=== PATIENT | male | born 1975 | race Caucasian/White ===

== ENCOUNTER 2020-11-22 12:45 | Outpatient (CLI) | payer OTHER, SELFPAY ==
--- NOTE | 2020-11-28 13:24 | WPDPFTINT ---
PFT Interpretation This PFT met all criteria for ATS standards and reproducibility FEV/FVC post bronchodilator 73% FEV1 59% FVC 64% FEV1 improved by 15% and 310 mL post bronchodilator. TLC 125% RV 297% RV/TLC 68% DLCO 90% when adjusted for alveolar volume but not adjusted for hemoglobin Flow volume loops showed Significant expiratory coving Impression: Moderate airflow obstruction with good response to bronchodilators and hyperinflation and air trapping. This pattern is suggestive of asthma or reactive airway disease. Clinical correlation is advised. PFT Procedure Performed PFT Procedure Performed Spirometry with Pre/Post Bronchodilator Plethysmography (Lung Vol) Diffusing Cap (DLCO) Flow Vol Loop
== END 2020-11-22 12:46 | disposition home or self-care (01) ==
PROVIDERS: PCP Family Medicine; Visit Provider Family Medicine
DX: R06.2 Wheezing (principal); I10 Essential (primary) hypertension
CPT/HCPCS: 94060; 94726; 94729

== ENCOUNTER 2022-06-09 10:07 | Outpatient (CLI) | payer BC, SELFPAY ==
[2022-06-09 12:43] LABS: Kit Draw Collected
== END 2022-06-09 10:08 | disposition home or self-care (01) ==
LOC: ANHGOSHLAB 10:09
PROVIDERS: PCP Family Medicine; Visit Provider Nurse Practitioner
DX: I10 Essential (primary) hypertension (principal); Z53.8 Procedure and treatment not carried out for other reasons
CPT/HCPCS: 99199; 36415

== ENCOUNTER 2024-01-25 08:17 | Outpatient (CLI) | payer BC, SELFPAY ==
[2024-01-25 18:57] LABS: Basophils Absolute Auto 0.1 K/mm3 (0.0-0.1); Eosinophils Absolute Auto 0.2 K/mm3 (0-0.3); Eosinophils Percent Auto 3.9 % (0-4.4); Hematocrit 45.9 % (42.0-52.0); Hemoglobin 15.1 g/dL (14.0-18.0); Immature Granulocyte Absolute 0.05 K/mm3 (0.00-0.031); Immature Granulocyte Percent A 0.8 % (0-0.5); Lymphocytes Absolute Auto 1.52 K/mm3 (0.9-3.2); Lymphocytes Percent Auto 24.4 % (18.3-44.2); Mean Corpuscular HGB Conc 32.9 g/dl (32-36); Mean Corpuscular Hemoglobin 31.5 pg (26-34); Mean Corpuscular Volume 95.6 fl (80-100); Mean Platelet Volume 10.1 fl (7.4-10.4); Monocytes Absolute Auto 0.8 K/mm3 (0.1-0.6); Monocytes Percent Auto 12.1 % (2.6-8.5); Neutrophils Absolute Auto 3.6 K/mm3 (1.3-6.7); Neutrophils Percent Auto 57.8 % (45.5-73.1); Platelet Count Result 241 k/mm3 (150-375); Red Cell Distribution Width 12.6 % (11.5-14.5); White Blood Count 6.2 K/mm3 (4.5-10.0)
[2024-01-25 18:58] LABS: Cholesterol 168 mg/dL (0-200); HDL Direct 34 mg/dL; Triglycerides 143 mg/dL (<150)
[2024-01-25 19:13] LABS: LDL Cholesterol Direct 117 mg/dL
[2024-01-25 19:29] LABS: Prostate Specific Antigen 0.5 ng/mL (< OR = 4.0)
[2024-01-25 20:09] LABS: Hemoglobin A1C 5.3 % (<5.7)
== END 2024-01-25 08:18 | disposition home or self-care (01) ==
LOC: ANHGOSHLAB 08:18
PROVIDERS: PCP Family Medicine; Visit Provider Nurse Practitioner Family
DX: I10 Essential (primary) hypertension (principal); J45.909 Unspecified asthma, uncomplicated; R01.1 Cardiac murmur, unspecified; Z00.00 Encounter for general adult medical examination without abnormal findings; Z13.29 Encounter for screening for other suspected endocrine disorder; E78.5 Hyperlipidemia, unspecified; R73.03 Prediabetes; Z12.5 Encounter for screening for malignant neoplasm of prostate
CPT/HCPCS: 36415; 80061; 83036; 84153; 84443; 85025; G0103